=== PATIENT | male | born 1935 | race Caucasian/White ===

== ENCOUNTER 2023-05-27 14:48 | Inpatient (IN) | payer BC, MEDICARE ==
[2023-05-27 15:31] LABS: BASOPHILS PERCENT AUTO 0.1 % (0.1-1.3); HEMATOCRIT 37.8 % (38.4-49.7); HEMOGLOBIN 12.8 g/dL (12.9-16.9); IMMATURE GRAN ABSOLUTE AUTO 0.05 K/uL (0.00-0.23); IMMATURE GRAN PERCENT AUTO 0.4 % (0.0-0.7); LYMPHOCYTES ABSOLUTE AUTO 1.24 K/uL (0.8-3.3); MEAN CORPUSCULAR HEMOGLOBIN 30.2 pg (31.6-35.5); MEAN CORPUSCULAR HGB CONC 33.9 g/dL (31.6-35.5); MEAN CORPUSCULAR VOLUME 89.2 fL (81.4-99.0); MONOCYTES ABSOLUTE AUTO 0.67 K/uL (0.20-0.90); MONOCYTES PERCENT AUTO 4.9 % (3.3-12.6); NEUTROPHILS PERCENT AUTO 85.6 % (40.0-78.1); PLATELET COUNT,PLT 142 K/uL (130-375); RED BLOOD CELL COUNT 4.24 M/uL (4.14-5.76); WHITE BLOOD CELL COUNT,WBC 13.8 K/uL (3.2-11.0)
[2023-05-27 15:32] LABS: BASOPHILS ABSOLUTE AUTO 0.02 K/uL (0.00-0.10)
[2023-05-27] MEDS ORDERED: Sodium Chloride 0.9% 1,000 ML IV SCH ×2 (15:45→20:30)
[2023-05-27] MEDS ORDERED: Ondansetron 4 MG/2 ML SDV IVPUSH ONE (15:45)
[2023-05-27 15:53] LABS: A/G RATIO 0.9 (1.2-2.2); ALANINE AMINOTRANSFERASE,ALT 28 U/L (12-78); ALBUMIN 2.9 g/dL (3.4-5.0); ALKALINE PHOSPHATASE 83 U/L (46-116); ASPARTATE AMNIOTRANSFERASE,AST 22 U/L (15-37); BILIRUBIN TOTAL 1.1 mg/dL (0.2-1.0); BLOOD UREA NITROGEN,BUN 19 mg/dL (7-18); CALCIUM 8.2 mg/dL (8.5-10.1); CARBON DIOXIDE,CO2 28 mmol/L (21-32); CHLORIDE,CL 103 mmol/L (100-108); CREATININE 1.3 mg/dL (0.8-1.3); EST CRCL DRUG DOSING (CG) 42.12 mL/min; ESTIMATED GFR 54 mL/min (>60); GLUCOSE RANDOM 138 mg/dL (74-106); POTASSIUM,K 3.7 mmol/L (3.6-5.2); PROTEIN TOTAL,TP 6.1 g/dL (6.4-8.2); SODIUM,NA 137 mmol/L (140-148)
[2023-05-27 16:04] LABS: CORONAVIRUS COVID-19 NAA NEGATIVE (NEGATIVE); INFLUENZA A NAA NEGATIVE (NEGATIVE); INFLUENZA B NAA NEGATIVE (NEGATIVE); RESPIRATORY SYNCYTIAL VIR NAA NEGATIVE (NEGATIVE)
[2023-05-27 16:25] LABS: ANION GAP 9.7 mmol/L (5.0-14.0)
[2023-05-27 16:44] LABS: APPEARANCE,URINE CLEAR (CLEAR); BILIRUBIN,URINE NEGATIVE (NEGATIVE); COLOR,URINE YELLOW (YELLOW); GLUCOSE,URINE NEGATIVE (NEGATIVE); KETONES,URINE 40 mg/dL (NEGATIVE); LEUKOCYTE ESTERASE,URINE NEGATIVE (NEGATIVE); NITRITE,URINE NEGATIVE (NEGATIVE); OCCULT BLOOD,URINE NEGATIVE (NEGATIVE); PROTEIN,URINE 100 mg/dL (NEGATIVE)
[2023-05-27 16:45] LABS: EPITHELIAL CELLS,URINE RARE; WBC,URINE 0-5 (0-5)
[2023-05-27 16:47] LABS: AMORPHOUS SEDIMENT,URINE NOT SEEN; BACTERIA,URINE RARE; MUCUS,URINE NOT SEEN
[2023-05-27] MEDS ORDERED: Sodium Chloride 0.9% 10 ML Syringe FLUSH ONE (18:05)
[2023-05-27] MEDS ORDERED: Sodium Chloride 0.9% 100 ML IV SCH (18:15)
[2023-05-27] MEDS ORDERED: Iopamidol 755 Mg/ML 100 ML Bottle IV SCH (18:15)
[2023-05-27] MEDS ORDERED: Sodium Chloride 0.9% 1,000 ML IV ONE (20:26)
[2023-05-27] MEDS ORDERED: Levofloxacin/Dextrose 5%-Water 750 MG in Premix Bag 1 BAG IV SCH ×3 (20:45→21:00)
[2023-05-27] MEDS ORDERED: Melatonin 3 MG Tab PO PRN (20:58)
[2023-05-27] MEDS ORDERED: Ondansetron 4 MG Tab.DIS PO PRN (20:58)
[2023-05-27] MEDS ORDERED: Ondansetron 4 MG/2 ML SDV IV PRN (20:58)
[2023-05-27] MEDS ORDERED: Albuterol 0.083% 2.5 MG/3 ML Neb Soln NEB PRN (20:58)
[2023-05-27] MEDS ORDERED: Sennosides/Docusate Sodium 50-8.6 MG Tab PO PRN (20:58)
[2023-05-27] MEDS ORDERED: Magnesium Hydroxide 400 MG/5 ML Susp 30 ML Cup PO PRN (20:58)
[2023-05-27] MEDS ORDERED: Acetaminophen 325 MG Tab PO PRN (20:58)
[2023-05-27 21:11] LABS: LACTIC ACID 1.2 mmol/L (0.4-2.0)
[2023-05-27] MEDS: Lactobacillus Rhamnosus GG (Probiotic) Cap PO SCH (21:59)
[2023-05-27] MEDS: Sodium Chloride 0.9% 1,000 ML IV SCH (22:26)
[2023-05-27] MEDS: Enoxaparin 40 MG/0.4 ML Syringe SUBCUT SCH (22:36)
[2023-05-27] MEDS ORDERED: Benzonatate 100 MG Cap PO PRN (22:56)
[2023-05-27] MEDS ORDERED: guaiFENesin 100 MG/5 ML Soln 10 ML UD Cup PO PRN (22:57)
[2023-05-28 05:51] LABS: HEMATOCRIT 35.2 % (38.4-49.7); HEMOGLOBIN 11.6 g/dL (12.9-16.9); MEAN CORPUSCULAR HEMOGLOBIN 29.7 pg (31.6-35.5); MEAN CORPUSCULAR VOLUME 90.3 fL (81.4-99.0); RED BLOOD CELL COUNT 3.9 M/uL (4.14-5.76); WHITE BLOOD CELL COUNT,WBC 11.3 K/uL (3.2-11.0)
[2023-05-28 06:10] LABS: CALCIUM 7.6 mg/dL (8.5-10.1); CREATININE 1.1 mg/dL (0.8-1.3); EST CRCL DRUG DOSING (CG) 49.77 mL/min; POTASSIUM,K 3.7 mmol/L (3.6-5.2)
[2023-05-28 06:13] LABS: ANION GAP 7.7 mmol/L (5.0-14.0)
[2023-05-28] MEDS: Sodium Chloride 0.9% 1,000 ML IV SCH (07:31)
[2023-05-28] MEDS: Lactobacillus Rhamnosus GG (Probiotic) Cap PO SCH ×2 (08:58→21:21)
[2023-05-28] MEDS: Propranolol 60 MG Cap.ER PO SCH (08:58)
[2023-05-28] MEDS ORDERED: Atenolol 25 MG Tab PO SCH (09:00)
[2023-05-28] MEDS ORDERED: Non-Formulary Medication 1 Each (Atenolol [Atenolol] 50 MG Tablet) PO SCH (09:00)
[2023-05-28] MEDS ORDERED: Levofloxacin/Dextrose 5%-Water 750 MG in Premix Bag 1 BAG IV SCH (21:00)
[2023-05-28] MEDS ORDERED: Levofloxacin 250 MG Tab PO SCH (21:00)
[2023-05-28] MEDS: Enoxaparin 40 MG/0.4 ML Syringe SUBCUT SCH (21:21)
[2023-05-29] MEDS: Lactobacillus Rhamnosus GG (Probiotic) Cap PO SCH (08:28)
[2023-05-29] MEDS: Propranolol 60 MG Cap.ER PO SCH (08:28)
[2023-05-29] MEDS ORDERED: Levofloxacin 250 MG Tab PO SCH (21:00)
== END 2023-05-29 12:05 | disposition home or self-care (01) | DRG 871 ==
LOC: JP.ED 14:48 → JP.MS 20:21
PROVIDERS: ADMIT Registered Nurse; ATTEND Internal Medicine
DX: A41.9 Sepsis, unspecified organism (principal); J18.9 Pneumonia, unspecified organism; J96.01 Acute respiratory failure with hypoxia; Z20.822 Contact with and (suspected) exposure to COVID-19; I10 Essential (primary) hypertension; E78.00 Pure hypercholesterolemia, unspecified; Z88.0 Allergy status to penicillin; Z99.81 Dependence on supplemental oxygen; Z79.82 Long term (current) use of aspirin; Z99.89 Dependence on other enabling machines and devices; Z85.53 Personal history of malignant neoplasm of renal pelvis; Z79.899 Other long term (current) drug therapy; Z86.010 Personal history of colon polyps; Z11.52 Encounter for screening for COVID-19; R06.02 Shortness of breath
CPT/HCPCS: 0241U; 36415; 71045; 71045-26; 71275; 80048; 80053; 81001; 83605; 83880; 85025; 85027; 85379; 87040; 96361; 96374; 97116-GP; 97161-GP; 97530-GP; 99222; 99232; 99238; 99284; 99285-25; A9270-GY; J1650; J1956; J2405; J3490; J7030; Q9967